=== PATIENT | male | born 1975 | race American Indian/Alaskan Native ===

== ENCOUNTER 2017-05-31 14:20 | Emergency (ER) | payer SELFPAY ==
[2017-05-31] MEDS ORDERED: DILAUDID ONE (14:42)
[2017-05-31] MEDS ORDERED: DILAUDID IV ONE (14:54)
[2017-05-31] MEDS ORDERED: ZOFRAN IV ONE (14:54)
[2017-05-31] MEDS ORDERED: ZOFRAN ONE (14:55)
--- NOTE | 2017-05-31 15:33 | Emergency Department Report ---
ED Abdominal Pain HPI - General Chief Complaint: Urogenital-Male Stated Complaint: RIGHT ABD PAIN Time Seen by Provider: 05/31/17 14:49 Source: patient Mode of arrival: Wheelchair Limitations: No Limitations - History of Present Illness Initial Comments: Patient is a 41-year-old male presents to emergency room with complaints of abdominal pain times 1 hour. Patient states that the abdominal pain as a 10 out of 10 in his right lower quadrant radiating down to his right testicle. Patient states that he feels like he is having a testicular torsion. Patient states is hurting when he urinates. Patient states the pain is worse with movement. Patient states the pain is better with rest. Patient denies fever and chills. Patient denies chest pain/shortness of breath. MD Complaint: abdominal pain -: Sudden Location: RLQ Radiation: suprapubic Migration to: no migration Severity scale (0 -10): 10 Quality: stabbing, sharp Consistency: constant Improves With: rest Worsens With: movement Associated Symptoms: dysuria. denies: nausea, vomiting, diarrhea, fever, chills , constipation, hematemesis, hematochezia, melena, hematuria, anorexia, syncope Treatments Prior to Arrival: NSAIDs - Related Data Previous Rx's Medication Instructions Recorded Last Taken Type Ondansetron [Zofran] 4 mg PO Q6HR PRN #20 tablet 02/06/13 Unknown Rx Tamsulosin [Flomax] 0.4 mg PO QDAY #5 cap 02/18/14 Unknown Rx oxyCODONE /ACETAMINOPHEN [Percocet 1 tab PO Q6HR PRN #10 tablet 02/18/14 Unknown Rx 5/325 mg] Allergies Allergy/AdvReac Type Severity Reaction Status Date / Time No Known Allergies Allergy Verified 02/06/13 00:39 ED Review of Systems ROS: Stated complaint: RIGHT ABD PAIN Other details as noted in HPI Comment: All other systems reviewed and negative Constitutional: denies: chills, fever Eyes: denies: eye pain, eye discharge, vision change ENT: denies: ear pain, throat pain Respiratory: denies: cough, shortness of breath, wheezing Cardiovascular: denies: chest pain, palpitations Endocrine: no symptoms reported Gastrointestinal: abdominal pain. denies: nausea, diarrhea Genitourinary: dysuria. denies: urgency Musculoskeletal: denies: back pain, joint swelling, arthralgia Skin: denies: rash, lesions Neurological: denies: headache, weakness, paresthesias Psychiatric: denies: anxiety, depression Hematological/Lymphatic: denies: easy bleeding, easy bruising ED Past Medical Hx - Past Medical History Previous Medical History?: Yes Additional medical history: pancreatitis, kidney stone at age 12,hydronephrosis, alcohol abuse - Surgical History Past Surgical History?: Yes Additional Surgical History: c-spine - Family History Family history: hypertension - Social History Smoking Status: Never Smoker Substance Use Type: Alcohol - Medications Home Medications: Home Medications Medication Instructions Recorded Confirmed Last Taken Type Ondansetron [Zofran] 4 mg PO Q6HR PRN #20 tablet 02/06/13 Unknown Rx Tamsulosin [Flomax] 0.4 mg PO QDAY #5 cap 02/18/14 Unknown Rx oxyCODONE /ACETAMINOPHEN [Percocet 1 tab PO Q6HR PRN #10 tablet 02/18/14 Unknown Rx 5/325 mg] ED Physical Exam - General Limitations: No Limitations General appearance: alert, in no apparent distress - Head Head exam: Present: atraumatic, normocephalic - Eye Eye exam: Present: normal appearance - ENT ENT exam: Present: mucous membranes moist - Neck Neck exam: Present: normal inspection - Respiratory Respiratory exam: Present: normal lung sounds bilaterally. Absent: respiratory distress - Cardiovascular Cardiovascular Exam: Present: regular rate, normal rhythm. Absent: systolic murmur, diastolic murmur, rubs, gallop - GI/Abdominal GI/Abdominal exam: Present: soft, tenderness (right lower quadrant tenderness.) , normal bowel sounds - Rectal Rectal exam: Present: deferred - exam: Present: normal inspection, testicular tenderness (right testicular tenderness noted), circumcision. Absent: urethral discharge, scrotal swelling - Extremities Exam Extremities exam: Present: normal inspection - Back Exam Back exam: Present: normal inspection - Neurological Exam Neurological exam: Present: alert, oriented X3 - Psychiatric Psychiatric exam: Present: normal affect, normal mood - Skin Skin exam: Present: warm, dry, intact, normal color. Absent: rash ED Course Vital Signs 05/31/17 05/31/17 05/31/17 14:29 14:50 14:52 Temperature 98.5 F Pulse Rate 74 57 L Respiratory 18 22 22 Rate Blood Pressure 161/89 Blood Pressure 147/86 [Right] O2 Sat by Pulse 100 100 100 Oximetry 05/31/17 16:08 Temperature Pulse Rate 59 L Respiratory 16 Rate Blood Pressure Blood Pressure 132/75 [Right] O2 Sat by Pulse 98 Oximetry - Reevaluation(s) Reevaluation #1: Patient signed out to dr walters. CT and ultrasound pending. 05/31/17 16:21 ED Medical Decision Making - Lab Data Result diagrams: 05/31/17 15:37 05/31/17 15:37 - Radiology Data Radiology results: pending - Differential Diagnosis kidney stone. UTI. Testicular pain. Abdominal pain Critical care attestation.: If time is entered above; I have spent that time in minutes in the direct care of this critically ill patient, excluding procedure time. ED Disposition Clinical Impression: Abdominal pain, Testicular pain Disposition: DC-01 TO HOME OR SELFCARE Is pt being admited?: No Does the pt Need Aspirin: No Condition: Stable Time of Disposition: 16:23 (patient signed out to Dr WALTERS)
[2017-05-31 15:49] LABS: Basophils % (Auto) 0.2 % (0.0-1.8); Eosinophils % (Auto) 0.3 % (0.0-4.3); Hematocrit 40.6 % (35.5-45.6); Hemoglobin 13.8 gm/dl (11.8-15.2); Lymphocytes # (Auto) 0.8 K/mm3 (1.2-5.4); Lymphocytes % (Auto) 8.6 % (13.4-35.0); Mean Corpuscular HGB Conc 34 % (32-34); Mean Corpuscular Hemoglobin 33 pg (28-32); Mean Corpuscular Volume 98 fl (84-94); Monocytes # (Auto) 0.4 K/mm3 (0.0-0.8); Monocytes % (Auto) 4.1 % (0.0-7.3); Platelet Count 184 K/mm3 (140-440); Red Blood Count 4.15 M/mm3 (3.65-5.03); Red Cell Distribution Width 12.8 % (13.2-15.2)
[2017-05-31 16:00] LABS: Alanine Aminotransferase 10 units/L (7-56); BUN/Creatinine Ratio 14; Blood Urea Nitrogen 14 mg/dL (9-20); Calcium 8.1 mg/dL (8.4-10.2); Hemolysis Index 4
[2017-05-31 16:08] VITALS: BP 132/75
--- NOTE | 2017-05-31 16:27 | Ultrasound Report ---
FINAL REPORT EXAM: US TESTICULAR DOPPLER COMP HISTORY: testicular pain TECHNIQUE: Ultrasound of scrotum PRIORS: None. FINDINGS: Examination of the testicles demonstrates both to be normal in size and normal and homogeneous in echogenicity with normal blood flow bilaterally. No focal abnormality is noted in either testicle. The right testicle measures 4.9 x 2.6 x 2.4 cm and the left measures 4.7 x 3.1 x 1.7 cm. Both epididymides appear normal in size and echogenicity with normal blood flow. No focal abnormality is noted. Small bilateral hydroceles are noted. Bilateral varicoceles are noted. IMPRESSION: 1. negative testicular ultrasound 2. Small bilateral hydroceles and bilateral varicoceles are noted.
--- NOTE | 2017-05-31 17:31 | Cat Scan Report ---
FINAL REPORT EXAM: CT ABDOMEN PELVIS WO CON HISTORY: abd pain TECHNIQUE: Standard unenhanced CT of the abdomen and pelvis. Coronal and sagittal reconstruction was also performed. PRIORS: None. FINDINGS: There is 3.8 mm calculus layering within the dependent bladder. This has likely been recently passed from the right collecting system. There is moderate right-sided hydronephrosis suggesting residual edema at the ureterovesical junction. Several bilateral nonobstructing renal calculi are noted measuring up to 4-5 mm on the right. These are more numerous on the right than the left. A low-density rounded 1.6 x 1.5 cm cyst is present in the anterior midpole left kidney. No evidence for bladder mass is seen. Within the abdomen, the liver, spleen, pancreas, gallbladder, adrenal glands are unremarkable. No evidence for retroperitoneal or pelvic lymphadenopathy is seen. The bowel loops have normal caliber. No soft tissue mass, fluid collection, inflammatory change, or free air is seen within the abdomen or pelvis. The appendix is normal. Within the pelvis, the bladder is unremarkable. The prostate is normal. No evidence for mass or lymphadenopathy is seen in the pelvis. Images through the upper abdomen include the lung bases which are expanded and clear. Bony structures show no focal abnormalities and are intact. IMPRESSION: 1. Moderate hydronephrosis of the right collecting system. This is likely due to residual edema at the right ureterovesical junction as there is evidence for a layering calculus in the bladder, likely having recently passed. 2. Bilateral nonobstructing renal calculi, more numerous on the right than the left 3. Cyst in the left kidney.
--- NOTE | 2017-05-31 17:47 | Emergency Department Report ---
ED Male HPI - General Chief complaint: Urogenital-Male Stated complaint: RIGHT ABD PAIN Time Seen by Provider: 05/31/17 14:49 Source: patient Mode of arrival: Wheelchair Limitations: No Limitations - Related Data Previous Rx's Medication Instructions Recorded Last Taken Type Ondansetron [Zofran TAB] 4 mg PO Q6HR PRN #20 tablet 02/06/13 Unknown Rx oxyCODONE /ACETAMINOPHEN [Percocet 1 tab PO Q6HR PRN #10 tablet 02/18/14 Unknown Rx 5/325 mg] Tamsulosin [Flomax] 0.4 mg PO QDAY #5 cap 05/31/17 Unknown Rx Allergies Allergy/AdvReac Type Severity Reaction Status Date / Time No Known Allergies Allergy Verified 02/06/13 00:39 ED Review of Systems ROS: Stated complaint: RIGHT ABD PAIN Other details as noted in HPI Constitutional: denies: chills, fever Eyes: denies: eye pain, eye discharge, vision change ENT: denies: ear pain, throat pain Respiratory: denies: cough, shortness of breath, wheezing Cardiovascular: denies: chest pain, palpitations Endocrine: no symptoms reported Gastrointestinal: abdominal pain. denies: nausea, diarrhea Genitourinary: dysuria. denies: urgency Musculoskeletal: denies: back pain, joint swelling, arthralgia Skin: denies: rash, lesions Neurological: denies: headache, weakness, paresthesias Psychiatric: denies: anxiety, depression Hematological/Lymphatic: denies: easy bleeding, easy bruising ED Past Medical Hx - Past Medical History Previous Medical History?: Yes Additional medical history: pancreatitis, kidney stone at age 12,hydronephrosis, alcohol abuse - Surgical History Past Surgical History?: Yes Additional Surgical History: c-spine - Social History Smoking Status: Never Smoker Substance Use Type: Alcohol - Medications Home Medications: Home Medications Medication Instructions Recorded Confirmed Last Taken Type Ondansetron [Zofran TAB] 4 mg PO Q6HR PRN #20 tablet 02/06/13 Unknown Rx oxyCODONE /ACETAMINOPHEN [Percocet 1 tab PO Q6HR PRN #10 tablet 02/18/14 Unknown Rx 5/325 mg] Tamsulosin [Flomax] 0.4 mg PO QDAY #5 cap 05/31/17 Unknown Rx ED Physical Exam - General Limitations: No Limitations General appearance: alert, in no apparent distress ED Course Vital Signs 05/31/17 05/31/17 05/31/17 14:29 14:50 14:52 Temperature 98.5 F Pulse Rate 74 57 L Respiratory 18 22 22 Rate Blood Pressure 161/89 Blood Pressure 147/86 [Right] O2 Sat by Pulse 100 100 100 Oximetry 05/31/17 16:08 Temperature Pulse Rate 59 L Respiratory 16 Rate Blood Pressure Blood Pressure 132/75 [Right] O2 Sat by Pulse 98 Oximetry - Reevaluation(s) Reevaluation #1: 05/31/17 17:43 took over care of the oatient from Dr Chowdhury. he is pain free and says he just passed a kidney stone while here in [facility] ED Medical Decision Making - Lab Data Result diagrams: 05/31/17 15:37 05/31/17 15:37 Critical care attestation.: If time is entered above; I have spent that time in minutes in the direct care of this critically ill patient, excluding procedure time. ED Disposition Clinical Impression: Abdominal pain, Testicular pain, Kidney stone, Bilateral varicoceles, Hydrocele Disposition: DC-01 TO HOME OR SELFCARE Is pt being admited?: No Does the pt Need Aspirin: No Condition: Stable Instructions: Kidney Stones (ED) Prescriptions: Tamsulosin [Flomax] 0.4 mg PO QDAY #5 cap Referrals: PRIMARY CAREMD [Primary Care Provider] - 3-5 Days KULWINDER NOEL MD [Staff Physician] - 3-5 Days (BILATERAL VARICOCELE, KIDNEY STONE,HYDROCELE AND LEFT SIDED MODERATE HYDRONEPHROSIS) Time of Disposition: 17:46 Print Language: [place]IZ[place]
== END 2017-05-31 18:04 | disposition home or self-care (01) ==
LOC: ED 14:20
DX: I86.1 Scrotal varices (principal); N43.3 Hydrocele, unspecified; N20.0 Calculus of kidney
CPT/HCPCS: 36415; 74176; 80053; 85025; 93975; 96374; 96375; 99284; J1170; J2405

== ENCOUNTER 2018-07-16 18:35 | Emergency (ER) | payer SELFPAY | END 2018-07-16 19:24 | disposition left against medical advice (07) | LOC: ED 18:35 | DX: M54.89 Other dorsalgia (principal); Z53.21 Procedure and treatment not carried out due to patient leaving prior to being seen by health care provider ==

== ENCOUNTER 2020-05-31 09:51 | Emergency (ER) | payer OTHER ==
[2020-05-31 10:23] VITALS: BP 137/94
--- NOTE | 2020-05-31 10:36 | Emergency Department Report ---
- General Chief Complaint: Headache Stated Complaint: POSS SINUS Time Seen by Provider: 05/31/20 10:24 Source: patient Mode of arrival: Ambulatory Limitations: No Limitations - History of Present Illness Initial Comments: Patient is a 44-year-old male who presents emergency room complaints of a sore throat that began 2 days ago. He has associated discomfort with swallowing. He states he has not been drinking very much secondary to the throat discomfort. He is able to tolerate p.o. intake and his secretions. He states that he also has an associated headache. He denies any fever, abd pain, diarrhea, chest pain, shortness of breath, ear pain, cough. pMHx pancreatitis, nephrolithiasis. Allergy to sulfa. He denies any known sick contacts or recent travel. - Related Data Previous Rx's Medication Instructions Recorded Last Taken Type Ondansetron [Zofran TAB] 4 mg PO Q6HR PRN #20 tablet 02/06/13 Unknown Rx oxyCODONE /ACETAMINOPHEN [Percocet 1 tab PO Q6HR PRN #10 tablet 02/18/14 Unknown Rx 5/325 mg] Tamsulosin [Flomax] 0.4 mg PO QDAY #5 cap 05/31/17 Unknown Rx Ketorolac [Toradol] 10 mg PO Q6H PRN #20 tablet 07/13/18 Unknown Rx Ondansetron [Zofran Odt] 4 mg PO Q8HR PRN #30 tab.rapdis 07/13/18 Unknown Rx Oxycodone HCl/Acetaminophen 1 each PO Q6HR PRN #20 tablet 07/13/18 Unknown Rx [Percocet 10/325 mg] Sulfamethoxazole/Trimethoprim 1 each PO BID #14 tablet 07/13/18 Unknown Rx [Bactrim DS TAB] Amoxicillin [Trimox] 500 mg PO BID 10 Days #40 capsule 05/31/20 Unknown Rx Nystas/Diphen/Xyl Visc/Mylanta 30 ml MM Q4H PRN #200 ml 05/31/20 Unknown Rx [Magic Mouthwash] Allergies Allergy/AdvReac Type Severity Reaction Status Date / Time Sulfa (Sulfonamide Allergy Itching Verified 05/31/20 10:17 Antibiotics) ED Review of Systems ROS: Stated complaint: POSS SINUS Other details as noted in HPI Comment: All other systems reviewed and negative ED Past Medical Hx - Past Medical History Hx Kidney Stones: Yes Additional medical history: pancreatitis, kidney stone at age 12,hydronephrosis,alcohol abuse - Surgical History Additional Surgical History: c-spine - Social History Smoking Status: Never Smoker Substance Use Type: Marijuana - Medications Home Medications: Home Medications Medication Instructions Recorded Confirmed Last Taken Type Ondansetron [Zofran TAB] 4 mg PO Q6HR PRN #20 tablet 02/06/13 Unknown Rx oxyCODONE /ACETAMINOPHEN [Percocet 1 tab PO Q6HR PRN #10 tablet 02/18/14 Unknown Rx 5/325 mg] Tamsulosin [Flomax] 0.4 mg PO QDAY #5 cap 05/31/17 Unknown Rx Ketorolac [Toradol] 10 mg PO Q6H PRN #20 tablet 07/13/18 Unknown Rx Ondansetron [Zofran Odt] 4 mg PO Q8HR PRN #30 tab.rapdis 07/13/18 Unknown Rx Oxycodone HCl/Acetaminophen 1 each PO Q6HR PRN #20 tablet 07/13/18 Unknown Rx [Percocet 10/325 mg] Sulfamethoxazole/Trimethoprim 1 each PO BID #14 tablet 07/13/18 Unknown Rx [Bactrim DS TAB] Amoxicillin [Trimox] 500 mg PO BID 10 Days #40 capsule 05/31/20 Unknown Rx Nystas/Diphen/Xyl Visc/Mylanta 30 ml MM Q4H PRN #200 ml 05/31/20 Unknown Rx [Magic Mouthwash] ED Physical Exam - General Limitations: No Limitations General appearance: alert, in no apparent distress - Head Head exam: Present: atraumatic, normocephalic - Eye Eye exam: Present: normal appearance - ENT ENT exam: Present: mucous membranes moist, other (normal nasal turbinates, posterior oropharynx is erythematous with small exudates, no tonsillar hypertrophy or tonsillar exudates, uvula is midline, no uvular edema or deviation, no trismus, no tongue elevation, no muffled voice) - Neck Neck exam: Present: full ROM. Absent: meningismus - Respiratory Respiratory exam: Present: normal lung sounds bilaterally. Absent: respiratory distress, wheezes, rales, rhonchi, stridor, chest wall tenderness, accessory muscle use, decreased breath sounds, prolonged expiratory - Cardiovascular Cardiovascular Exam: Present: regular rate, normal rhythm, normal heart sounds. Absent: systolic murmur, diastolic murmur, rubs, gallop - Neurological Exam Neurological exam: Present: alert, oriented X3 - Psychiatric Psychiatric exam: Present: normal affect, normal mood - Skin Skin exam: Present: warm, dry, intact ED Course Vital Signs 05/31/20 10:21 Temperature 98.6 F Pulse Rate 69 Respiratory 18 Rate Blood Pressure 137/94 O2 Sat by Pulse 100 Oximetry ED Medical Decision Making - Medical Decision Making Patient is a 44-year-old male who presents emergency room complaints of a sore throat that began 2 days ago. He has associated discomfort with swallowing. He states he has not been drinking very much secondary to the throat discomfort. He is able to tolerate p.o. intake and his secretions. He states that he also has an associated headache. He denies any fever, abd pain, diarrhea, chest pain, shortness of breath, ear pain, cough. pMHx pancreatitis, nephrolithiasis. Allergy to sulfa. He denies any known sick contacts or recent travel. Vitals are normal. On exam:normal nasal turbinates, posterior oropharynx is erythematous with small exudates, no tonsillar hypertrophy or tonsillar exudates, uvula is midline, no uvular edema or deviation, no trismus, no tongue elevation, no muffled voice. Examination appears consistent with pharyngitis. Patient given prescription for amoxicillin and Magic mouthwash. Advised patient Please take medication as prescribed. Please increase your fluid intake over the next several days. Gargle with warm salt water. Throw away your toothbrush. Do not drink after others or allow anyone else to drink after you. Follow-up with your primary care doctor. Return to emergency room for any worsening symptoms. - Differential Diagnosis Pharyngitis, tonsillitis, peritonsillar abscess, viral syndrome Critical care attestation.: If time is entered above; I have spent that time in minutes in the direct care of this critically ill patient, excluding procedure time. ED Disposition Clinical Impression: Pharyngitis Qualifiers: Pharyngitis/tonsillitis etiology: unspecified etiology Qualified Code(s): J02.9 - Acute pharyngitis, unspecified Disposition: - TO HOME OR SELFCARE Is pt being admited?: No Does the pt Need Aspirin: No Condition: Stable Instructions: Pharyngitis Additional Instructions: Please take medication as prescribed. Please increase your fluid intake over the next several days. Gargle with warm salt water. Throw away your toothbrush. Do not drink after others or allow anyone else to drink after you. Follow-up with your primary care doctor. Return to emergency room for any worsening symptoms. Prescriptions: Amoxicillin [Trimox] 500 mg PO BID 10 Days #40 capsule Nystas/Diphen/Xyl Visc/Mylanta [Magic Mouthwash] 30 ml MM Q4H PRN #200 ml PRN Reason: sore throat Referrals: your, primary care doctor [Other] - 2-3 Days Time of Disposition: 10:35 Print Language: AMERICAN
== END 2020-05-31 11:05 | disposition home or self-care (01) ==
LOC: ED 09:51
DX: J02.9 Acute pharyngitis, unspecified (principal); N20.0 Calculus of kidney; F12.10 Cannabis abuse, uncomplicated; Z79.899 Other long term (current) drug therapy; Z88.2 Allergy status to sulfonamides
CPT/HCPCS: 99282

== ENCOUNTER 2020-06-02 03:58 | Emergency (ER) | payer OTHER ==
[2020-06-02] MEDS ORDERED: IBUPROFEN 800 MG TAB PO ONE (07:34)
--- NOTE | 2020-06-02 08:03 | Cat Scan Report ---
CT HEAD WITHOUT CONTRAST INDICATION / CLINICAL INFORMATION: severe headache. TECHNIQUE: Axial imaging performed from the skull apex through the skull base without the use of cont rast. Sagittal and coronal reformatted images. All CT scans at this location are performed using CT dose reduction for ALARA by means of automated exposure control. COMPARISON: None available. FINDINGS: CEREBRAL PARENCHYMA: No significant abnormality. No acute territorial infarct. HEMORRHAGE: None. EXTRA-AXIAL SPACES: Normal in size and morphology for the patient's age. Slightly prominent cisterna magna is noted. VENTRICULAR SYSTEM: Normal in size and morphology for the patient's age. MIDLINE SHIFT OR HERNIATION: None. CEREBELLUM / BRAINSTEM: No significant abnormality. CALVARIUM: No significant abnormality. ORBITS: Normal as visualized. PARANASAL SINUSES / MASTOID AIR CELLS: Normal as visualized. SOFT TISSUES of HEAD: No significant abnormality. ADDITIONAL FINDINGS: None. IMPRESSION: No acute intracranial abnormality. Signer Name: Ming Stout Jr, MD Signed: 06/02/2020 7:58 AM Workstation Name: [id number]
--- NOTE | 2020-06-02 08:07 | Emergency Department Report ---
ED Headache HPI - General Chief Complaint: Headache Stated Complaint: HEADACHE Time Seen by Provider: 06/02/20 07:25 Source: patient Exam Limitations: no limitations - History of Present Illness Initial Comments: Patient is a 44-year-old -[place] male that presents to the ER complaining of a severe headache. He has his ER papers with him which he promptly threw on the stretcher and told me that it says that if he has ongoing pain to come back to the emergency room. He states that he has taken his antibiotic that was given 2 days ago when he was in the emergency room. He did not follow-up per the discharge packet. He comes with a headache today. He states that he is taking [id number] Motrin and Tylenol with no relief. He denies any head trauma. He denies any prior history of pollen related illness. Patient is neuro intact on exam. In fact I overheard the patient outside as I walked in this morning yelling on the phone that He was told to come back to the ER for pain and thus he is in the ER. He was yelling and whomever he was speaking to and clearly in no distress. However, when he was brought back to [facility] he wanted his lights out and rolled in position and was moaning with pain. Patient denies any history of migraine headaches. Patient's blood pressure noted to be mildly elevated in triage. He denies history of hypertension. Timing/Duration: 1 week Quality: severe Head Injury Location: global Recent Head Trauma: other Modifying Factors: worse with: cold therapy, exposure to light, immobilization, medication, movement, rest, other Associated Symptoms: denies: denies symptoms, confusion, fatigue, facial pain, fever/chills, flushing, loss of consciousness, nausea/vomiting, nasal congestion, nasal drainage, numbness in legs/feet, rash, seizures, sinus infection, stiff neck, vision changes, weakness, other Allergies/Adverse Reactions: Allergies Sulfa (Sulfonamide Antibiotics) Allergy (Verified 05/31/20 10:17) Itching Home Medications: Ambulatory Orders Ondansetron [Zofran TAB] 4 mg PO Q6HR PRN #20 tablet 02/06/13 oxyCODONE /ACETAMINOPHEN [Percocet 5/325 mg] 1 tab PO Q6HR PRN #10 tablet 02/18/14 Tamsulosin [Flomax] 0.4 mg PO QDAY #5 cap 05/31/17 Ketorolac [Toradol] 10 mg PO Q6H PRN #20 tablet 07/13/18 Ondansetron [Zofran Odt] 4 mg PO Q8HR PRN #30 tab.rapdis 07/13/18 Oxycodone HCl/Acetaminophen [Percocet 10/325 mg] 1 each PO Q6HR PRN #20 tablet 07/13/18 Sulfamethoxazole/Trimethoprim [Bactrim DS TAB] 1 each PO BID #14 tablet 07/13/18 Amoxicillin [Trimox] 500 mg PO BID 10 Days #40 capsule 05/31/20 Nystas/Diphen/Xyl Visc/Mylanta [Magic Mouthwash] 30 ml MM Q4H PRN #200 ml 05/31/20 Butalb/Acetaminophen/Caffeine [Fioricet 50-300-40 mg CAP] 1 cap PO Q6HR PRN #10 cap 06/02/20 ED Review of Systems ROS: Stated complaint: HEADACHE Other details as noted in HPI Comment: All other systems reviewed and negative ED Past Medical Hx - Past Medical History Previous Medical History?: Yes Hx Kidney Stones: Yes Additional medical history: pancreatitis, kidney stone at age 12,hydronephrosis,alcohol abuse - Surgical History Past Surgical History?: Yes Additional Surgical History: c-spine - Family History Family history: no significant - Social History Smoking Status: Current Every Day Smoker Substance Use Type: None - Medications Home Medications: Home Medications Medication Instructions Recorded Confirmed Last Taken Type Ondansetron [Zofran TAB] 4 mg PO Q6HR PRN #20 tablet 02/06/13 Unknown Rx oxyCODONE /ACETAMINOPHEN [Percocet 1 tab PO Q6HR PRN #10 tablet 02/18/14 Unknown Rx 5/325 mg] Tamsulosin [Flomax] 0.4 mg PO QDAY #5 cap 05/31/17 Unknown Rx Ketorolac [Toradol] 10 mg PO Q6H PRN #20 tablet 07/13/18 Unknown Rx Ondansetron [Zofran Odt] 4 mg PO Q8HR PRN #30 tab.rapdis 07/13/18 Unknown Rx Oxycodone HCl/Acetaminophen 1 each PO Q6HR PRN #20 tablet 07/13/18 Unknown Rx [Percocet 10/325 mg] Sulfamethoxazole/Trimethoprim 1 each PO BID #14 tablet 07/13/18 Unknown Rx [Bactrim DS TAB] Amoxicillin [Trimox] 500 mg PO BID 10 Days #40 capsule 05/31/20 Unknown Rx Nystas/Diphen/Xyl Visc/Mylanta 30 ml MM Q4H PRN #200 ml 05/31/20 Unknown Rx [Magic Mouthwash] Butalb/Acetaminophen/Caffeine 1 cap PO Q6HR PRN #10 cap 06/02/20 Unknown Rx [Fioricet 50-300-40 mg CAP] ED Physical Exam - General Limitations: No Limitations General appearance: alert, in no apparent distress - Head Head exam: Present: atraumatic, normocephalic - Eye Eye exam: Present: normal appearance - ENT ENT exam: Present: mucous membranes moist - Neck Neck exam: Present: normal inspection - Respiratory Respiratory exam: Present: normal lung sounds bilaterally. Absent: respiratory distress - Cardiovascular Cardiovascular Exam: Present: regular rate, normal rhythm. Absent: systolic murmur, diastolic murmur, rubs, gallop - GI/Abdominal GI/Abdominal exam: Present: soft, normal bowel sounds - Rectal Rectal exam: Present: deferred - Extremities Exam Extremities exam: Present: normal inspection - Back Exam Back exam: Present: normal inspection - Neurological Exam Neurological exam: Present: alert, oriented X3 - Psychiatric Psychiatric exam: Present: normal affect, normal mood - Skin Skin exam: Present: warm, dry, intact, normal color. Absent: rash ED Course Vital Signs 06/02/20 06/02/20 04:18 08:19 Temperature 99.2 F Pulse Rate 71 65 Respiratory 17 17 Rate Blood Pressure 157/101 Blood Pressure 154/99 [Left] O2 Sat by Pulse 100 100 Oximetry ED Medical Decision Making - Radiology Data Radiology results: report reviewed, image reviewed [facility] - Medical Decision Making Vital Signs 06/02/20 06/02/20 04:18 08:19 Temperature 99.2 F Pulse Rate 71 65 Respiratory 17 17 Rate Blood Pressure 157/101 Blood Pressure 154/99 [Left] O2 Sat by Pulse [address] neg pt informed of findings. He should continue antibiotics given the other day I have given the patient Fioricet today. He has been medicated with Motrin in the ER. Patient is ambulatory and with no focal deficit in the emergency room. Patient was informed that his blood pressure was a little elevated on arrival to the ER. It could very well be that he had a headache. However, instructed him that he should monitor his blood pressure and follow-up with primary care if it persist. He has been given a referral. He denies any chest pain or shortness of breath. He is neuro intact with no focal deficit. On discharge- bp trending down Patient being discharged home with PCP and neuro follow-up. Patient verbalizes understanding of discharge plan of care - Differential Diagnosis ro intracranial etiology of pain Critical care attestation.: If time is entered above; I have spent that time in minutes in the direct care of this critically ill patient, excluding procedure time. ED Disposition Clinical Impression: Headache Disposition: DC-01 TO HOME OR SELFCARE Is pt being admited?: No Does the pt Need Aspirin: No Condition: Stable Additional Instructions: continue your medication given the other day over the counter tylenol and motrin can be used for mild pain over the counter zyrtec may also help med as ordered today for severe pain FOLLOW UP WITH PCP OR NEUROLOGY MD IF PAIN PERSISTS REFERRAL BELOW Prescriptions: Butalb/Acetaminophen/Caffeine [Fioricet 50-300-40 mg CAP] 1 cap PO Q6HR PRN #10 cap PRN Reason: Pain , Severe (7-10) Referrals: GILMER OTOOLE MD [Primary Care Provider] - 3-5 Days TERENCE CRAMER MD [Staff Physician] - 3-5 Days SARA SALCEDO MD [Staff Physician] - 3-5 Days Forms: Work/School Release Form(ED) Time of Disposition: 08:07
[2020-06-02 08:20] VITALS: BP 154/99
== END 2020-06-02 08:22 | disposition home or self-care (01) ==
LOC: ED 03:58
DX: R51.9 Headache, unspecified (principal); F17.200 Nicotine dependence, unspecified, uncomplicated; Z98.890 Other specified postprocedural states; Z87.442 Personal history of urinary calculi; Z79.2 Long term (current) use of antibiotics; Z79.899 Other long term (current) drug therapy; Z88.2 Allergy status to sulfonamides
CPT/HCPCS: 70450